=== PATIENT | female | born 1975 | race American Indian/Alaskan Native ===

== ENCOUNTER 2018-12-18 01:56 | Emergency (ER) | payer MEDICAID, OTHER ==
[2018-12-18 02:18] VITALS: BP 152/98
[2018-12-18] MEDS ORDERED: BSS OU ONE (06:20)
[2018-12-18] MEDS ORDERED: FUL-GLO OP ONE ×2 (06:20→06:23)
[2018-12-18] MEDS ORDERED: TETRACAINE 0.5% ONE (06:23)
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
[2018-12-18] MEDS ORDERED: PERCOCET 5/325 PO ONE (07:22)
[2018-12-18] MEDS ORDERED: PERCOCET 5/325 ONE (07:25)
== END 2018-12-18 08:40 | disposition other institution (70) ==
LOC: ED 01:56
DX: S05.31XA Ocular laceration without prolapse or loss of intraocular tissue, right eye, initial encounter (principal); I10 Essential (primary) hypertension; Z90.710 Acquired absence of both cervix and uterus; W01.110A Fall on same level from slipping, tripping and stumbling with subsequent striking against sharp glass, initial encounter; Y93.89 Activity, other specified; Y92.89 Other specified places as the place of occurrence of the external cause; Y99.8 Other external cause status
CPT/HCPCS: 99284